=== PATIENT | female | born 1970 | race Caucasian/White ===

== ENCOUNTER → 2016-07-26 | Outpatient (REF) | payer MEDICARE, MEDICAID | LOC: M LAB REF 12:24 | PROVIDERS: ATTEND Physician Assistant | DX: R30.0 Dysuria (principal) ==

== ENCOUNTER → 2016-08-25 | Outpatient (CLI) | payer MEDICARE, MEDICAID ==
--- NOTE | 2016-08-25 15:05 | REPMRS ---
Patient History The patient states she had a clinical breast exam in 08/2016. Family history of endometrial cancer in sister under age 50 and ovarian cancer in sister. Digital Woman Screen Mammo: August 25, 2016 - Exam #: [id number] Bilateral CC and MLO view(s) were taken. Technologist: Maribel Salas, Technologist Prior study comparison: April 17, 2014, right breast digital mammo diagnostic unilateral, performed at [facility]. March 26, 2014, digital woman screen mammo performed at [facility]. FINDINGS: There are scattered fibroglandular densities. There has been no change in the appearance of the mammogram from the prior studies. There is a mild amount of residual fibroglandular tissue which is fairly symmetric. There is no interval development of dominant mass, architectural distortion, or clustered microcalcification suggestive of malignancy. ASSESSMENT: BI-RADS/ACR category 1 mammogram. Negative. Recommendation Routine screening mammogram in 1 year (for women over age 40). This mammogram was interpreted with the aid of an FDA-approved computer-aided dectection system. Electronically Signed By: Beto Nunez MD 08/25/16 [id number]
== END ==
LOC: M WHC 13:51
PROVIDERS: ATTEND Nurse Practitioner Women's Health
DX: Z12.31 Encounter for screening mammogram for malignant neoplasm of breast (principal); Z12.4 Encounter for screening for malignant neoplasm of cervix; Z80.49 Family history of malignant neoplasm of other genital organs; Z80.41 Family history of malignant neoplasm of ovary
CPT/HCPCS: 87624; G0101; G0123; G0202

== ENCOUNTER → 2017-05-05 | Outpatient (REF) | payer MEDICARE, MEDICAID | LOC: M LAB REF 20:06 | PROVIDERS: ATTEND Physician Assistant | DX: N39.0 Urinary tract infection, site not specified (principal) ==

== ENCOUNTER → 2018-01-11 | Outpatient (CLI) | payer MEDICARE, MEDICAID | LOC: M WHC 13:10 | DX: Z12.31 Encounter for screening mammogram for malignant neoplasm of breast (principal); Z12.4 Encounter for screening for malignant neoplasm of cervix; Z80.49 Family history of malignant neoplasm of other genital organs; Z80.41 Family history of malignant neoplasm of ovary | CPT/HCPCS: 77067; G0123 ==

== ENCOUNTER → 2018-01-11 | Outpatient (REF) | payer MEDICARE, MEDICAID ==
[2018-01-16 14:16] LABS: HPV HYBRID CAPTURE II Positive (Negative)
== END ==
LOC: M SFHCWAGY 13:35
DX: Z12.4 Encounter for screening for malignant neoplasm of cervix (principal)
CPT/HCPCS: G0123

== ENCOUNTER → 2018-01-23 | Outpatient (REF) | payer MEDICARE, MEDICAID | LOC: M SFHCWAGY 13:25 | DX: R87.810 Cervical high risk human papillomavirus (HPV) DNA test positive (principal) | CPT/HCPCS: 88304 ==

== ENCOUNTER 2018-07-17 19:34 | Emergency (ER) | payer MEDICARE, MEDICAID ==
[~2018-07-17] VITALS: Ht 165.1 cm; Wt 108.6 kg
[2018-07-17] MEDS ORDERED: ASPI1TAB PO (19:57)
[2018-07-17] MEDS ORDERED: ATOR1TAB19 PO (20:08)
[2018-07-17] MEDS ORDERED: LAMO200T2 PO (20:08)
[2018-07-17] MEDS ORDERED: CLON1TAB8 PO (20:08)
[2018-07-17] MEDS ORDERED: BISO5TAB5 PO (20:08)
[2018-07-17] MEDS ORDERED: GLYB1TAB67 PO (20:08)
[2018-07-17] MEDS ORDERED: TRUL0.5I SC (20:08)
[2018-07-17] MEDS ORDERED: VENL75CA2 PO (20:08)
[2018-07-17] MEDS ORDERED: ZIPR60CA11 PO (20:08)
[2018-07-17] MEDS ORDERED: LISI-542 PO (20:08)
[2018-07-17] MEDS ORDERED: FARX1TAB3 PO (20:08)
[2018-07-17] MEDS ORDERED: LEVE1INJ5 SC (20:08)
[2018-07-17] MEDS ORDERED: VENL150C43 PO (20:08)
[2018-07-17] MEDS ORDERED: MELO15TA28 PO (20:08)
[2018-07-17 20:16] LABS: BASO # 0.1 10^3/uL (0.0-0.2); BASO % 0.8 % (0.0-1.0); EOS # 0.4 10^3/uL (0.0-0.50); EOS % 2.4 % (0.0-3.0); HEMATOCRIT 44.7 % (36.0-47.0); LYMPH # 4.1 10^3/uL (1.5-4.5); LYMPH % 28.5 % (24.0-44.0); MEAN CORPUSCULAR HEMOGLOBIN 26.8 pg (27.0-33.0); MEAN CORPUSCULAR HGB CONC 31.3 g/dl (32.0-36.5); MEAN CORPUSCULAR VOLUME 85.5 fl (80.0-96.0); MONO # 0.8 10^3/uL (0.0-0.8); MONO % 5.8 % (0.0-5.0); NEUTROPHILS # 8.9 10^3/uL (1.8-7.7); NEUTROPHILS % 61.7 % (36.0-66.0); PLATELET COUNT, AUTOMATED 361 10^3/uL (150-450); RED BLOOD COUNT 5.23 10^6/uL (4.00-5.40); WHITE BLOOD COUNT 14.4 10^3/uL (4.0-10.0)
[2018-07-17] MEDS ORDERED: NORCO, ANEXSIA 5/325MG TABLET (HYDROcodone/ACETAMINOPHEN) PO ONE (20:30)
--- NOTE | 2018-07-17 20:40 | REP ---
Clinical: Chest pain and shortness of breath . Comparison: 07/17/2018 of the . Technique: PA and lateral. Findings: The mediastinum and cardiac silhouette are normal. The lung boyd are clear and without acute consolidation, effusion, or pneumothorax. The skeletal structures are intact and normal. Impression: 1. No acute cardiopulmonary process. Electronically Signed by Kwame Arndt MD 07/17/2018 08:32 P
[2018-07-17 20:59] LABS: ALBUMIN 3.5 GM/DL (3.2-5.2); ALT/SGPT 24 U/L (12-78); BILIRUBIN,DIRECT < 0.1 MG/DL (0.0-0.2); BILIRUBIN,TOTAL 0.2 MG/DL (0.2-1.0); BLOOD UREA NITROGEN 6 MG/DL (7-18); CALCIUM LEVEL 8.6 MG/DL (8.5-10.1); CARBON DIOXIDE LEVEL 25 MEQ/L (21-32); CHLORIDE LEVEL 105 MEQ/L (98-107); CPK CREATINE PHOSPHOKINASE 71 U/L (26-192); CREATININE FOR GFR 0.85 MG/DL (0.55-1.30); GLOMERULAR FILTRATION RATE > 60.0 (>58); GLUCOSE, FASTING 170 MG/DL (70-100); LIPASE 170 U/L (73-393); MB/CK RELATIVE INDEX 2.25 (< OR =4); POTASSIUM SERUM 4.3 MEQ/L (3.5-5.1); SODIUM LEVEL 138 MEQ/L (136-145); TOTAL PROTEIN 6.5 GM/DL (6.4-8.2); TROPONIN I < 0.02 NG/ML (< 0.10)
[2018-07-17] MEDS ORDERED: ISOVUE-370 76% 100ML VIAL (Q9967) As Ordered ONE (21:38)
[2018-07-17 22:30] VITALS: BP 170/74
--- NOTE | 2018-07-17 22:52 | REPVR ---
EXAM: CT Abdomen and Pelvis With Contrast EXAM DATE/TIME: 07/17/2018 10:02 PM CLINICAL HISTORY: 47 years old, female; Pain; Abdominal pain; Generalized; Additional info: Ruq abd/flank pain, eval for pyelo TECHNIQUE: Axial computed tomography images of the abdomen and pelvis with intravenous contrast. All CT scans at this facility use at least one of these dose optimization techniques: automated exposure control; mA and/or kV adjustment per patient size (includes targeted exams where dose is matched to clinical indication); or iterative reconstruction. Coronal and sagittal reformatted images were created and reviewed. CONTRAST: 100 ml of ISOVUE 370 administered intravenously. COMPARISON: No relevant prior studies available. FINDINGS: Lower thorax: Clear appearing lung bases. The heart is normal in size. ABDOMEN: Liver: Normal appearing liver. Gallbladder and bile ducts: Post cholecystectomy patient. Normal common bile duct. Pancreas: Normal pancreas. Spleen: Normal spleen. Adrenals: Normal adrenal glands. Kidneys and ureters: Normal kidneys. No evidence of a stone in the right or left ureter. Stomach and bowel: The cecum is in the right pelvis. The appendix appears within the range of normal. Normal-appearing small bowel. PELVIS: Bladder: Unremarkable as visualized. Reproductive: Normal uterus. Follicular cysts in both ovaries. ABDOMEN and PELVIS: Intraperitoneal space: There is no evidence of pneumoperitoneum. There is no evidence of free fluid in the abdomen or the pelvis. Bones/joints: There is no evidence of fracture. The lumbar vertebra appear in alignment. Soft tissues: Small umbilical hernia with protrusion 3 CM mesenteric fat. There is opacification of the aorta. There is opacification of the SMV and the SMA. IMPRESSION: 1. Very small fat containing umbilical hernia. 2. No evidence of bowel obstruction. Electronically signed by: Brandon Bacon On 07/17/2018 22:52:22 PM
[2018-07-17] MEDS ORDERED: CEPHALEXIN 500 MG CAP PO ONE (23:00)
[2018-07-17] MEDS ORDERED: KEFL500C17 PO (23:00)
--- NOTE | 2018-07-18 21:15 | ECGEPIP ---
Stationary ECG Study [facility] - ED Test Date: 2018-07-17 Pat Name: CHARIS DWYER Department: Room: - Gender: F Mat Gauger: [facility] : 1970 Requested By: LUIS LUA Order Number: [id number] Reading MD: Tai Adam Measurements Intervals [place] Rate: 72 P: 54 NM: 191 QRS: 29 QRSD: 88 T: 33 QT: 375 QTc: 413 Interpretive Statements SINUS RHYTHM BASELINE ARTIFACT AFFECTS INTERPRETATION NO PRIORS FOR COMPARISON Electronically Signed On 07-18-2018 21:14:57 EST by Tai Adam
== END 2018-07-17 23:11 | disposition home or self-care (01) ==
LOC: M ED 19:34
DX: N39.0 Urinary tract infection, site not specified (principal); R06.02 Shortness of breath; R10.11 Right upper quadrant pain; E11.9 Type 2 diabetes mellitus without complications; Z72.0 Tobacco use; K42.9 Umbilical hernia without obstruction or gangrene; Z79.82 Long term (current) use of aspirin; Z79.4 Long term (current) use of insulin; Z79.899 Other long term (current) drug therapy; Z88.5 Allergy status to narcotic agent; Z88.8 Allergy status to other drugs, medicaments and biological substances
CPT/HCPCS: 36415; 71046; 74177; 80053; 81001; 82550; 82553; 83690; 84484; 85025; 85379; 87088; 87186; 93005; 93041; 94760; 99285; Q9967

== ENCOUNTER → 2018-07-17 | Outpatient (CLI) | payer MEDICARE, MEDICAID ==
[~2018-07-17] MED LIST: ASPI1TAB PO; ATOR1TAB19 PO; BISO5TAB5 PO; CLON1TAB8 PO; FARX1TAB3 PO; GLYB1TAB67 PO; KEFL500C17 PO; LAMO200T2 PO; LEVE1INJ5 SC; LISI-542 PO; MELO15TA28 PO; TRUL0.5I SC; VENL150C43 PO; VENL75CA2 PO; ZIPR60CA11 PO
--- NOTE | 2018-07-17 17:27 | REP ---
Clinical: Shortness of breath . Comparison: 03/22/2014 . Technique: PA and lateral. Findings: The mediastinum and cardiac silhouette are normal. The lung boyd are clear and without acute consolidation, effusion, or pneumothorax. The skeletal structures are intact and normal. Impression: 1. No acute cardiopulmonary process. Electronically Signed by Kwame Arndt MD 07/17/2018 05:18 P
[2018-07-17 19:31] LABS: HEMATOCRIT 44.7 % (36.0-47.0); HEMOGLOBIN 14.2 g/dl (12.0-15.5); MEAN CORPUSCULAR HEMOGLOBIN 26.7 pg (27.0-33.0); MEAN CORPUSCULAR HGB CONC 31.8 g/dl (32.0-36.5); MEAN CORPUSCULAR VOLUME 84.2 fl (80.0-96.0); PLATELET COUNT, AUTOMATED 388 10^3/uL (150-450); RED BLOOD COUNT 5.31 10^6/uL (4.00-5.40); WHITE BLOOD COUNT 14.3 10^3/uL (4.0-10.0)
[2018-07-17 19:41] LABS: ALBUMIN 3.5 GM/DL (3.2-5.2); ALT/SGPT 23 U/L (12-78); BILIRUBIN,TOTAL < 0.1 MG/DL (0.2-1.0); BLOOD UREA NITROGEN 5 MG/DL (7-18); CALCIUM LEVEL 8.7 MG/DL (8.5-10.1); CARBON DIOXIDE LEVEL 26 MEQ/L (21-32); CHLORIDE LEVEL 106 MEQ/L (98-107); GLOMERULAR FILTRATION RATE > 60.0 (>58); GLUCOSE, FASTING 233 MG/DL (70-100); LIPASE 179 U/L (73-393); POTASSIUM SERUM 4.6 MEQ/L (3.5-5.1); SODIUM LEVEL 140 MEQ/L (136-145); TOTAL PROTEIN 6.5 GM/DL (6.4-8.2)
[2018-07-17 20:23] LABS: BASOPHILS 1 % (0-4); EOSINOPHILS 5 % (0-5); LYMPHOCYTES 35 % (16-52); MONOCYTES 5 % (0-8); NEUTROPHILS 54 % (35-75); PLATELET ESTIMATE NORMAL (NORMAL)
== END ==
LOC: M ADAMS 17:02
PROVIDERS: ATTEND Physician Assistant
DX: R06.02 Shortness of breath (principal); R10.11 Right upper quadrant pain

== ENCOUNTER → 2018-07-22 | Outpatient (CLI) | payer MEDICARE, MEDICAID ==
--- NOTE | 2018-07-22 09:52 | REP ---
Clinical: Thoracic back pain. Technique: AP, lateral, and swimmers views. Findings: Alignment and kyphosis is maintained. Vertebral bodies intact. No acute fracture / compression injury or subluxation. Mild degenerative changes include subtle marginal spurring. Paravertebral soft tissues are normal. Impression: Mild thoracic degenerative change. Electronically Signed by Kwame Arndt MD 07/22/2018 09:44 A
== END ==
LOC: M ADAMS 09:23
PROVIDERS: ATTEND Physician Assistant
DX: M54.6 Pain in thoracic spine (principal); S20.221A Contusion of right back wall of thorax, initial encounter; W18.30XA Fall on same level, unspecified, initial encounter; Y92.009 Unspecified place in unspecified non-institutional (private) residence as the place of occurrence of the external cause

== ENCOUNTER → 2018-10-09 | Outpatient (REF) | payer MEDICARE, MEDICAID ==
[~2018-10-09] MED LIST changes: -ASPI1TAB PO; +ASPI81TA26 PO
== END ==
LOC: M LAB REF 12:59
PROVIDERS: ATTEND Physician Assistant
DX: R30.0 Dysuria (principal)

== ENCOUNTER → 2019-02-08 | Outpatient (CLI) | payer MEDICARE, MEDICAID ==
--- NOTE | 2019-02-09 08:00 | REP ---
BILATERAL SCREENING DIGITAL MAMMOGRAM WITH 3D TOMOSYNTHESIS: There are no palpable abnormalities or other breast complaints. The the patient states she had a clinical breast examination January,. The the patient states she performs self-breast examinations 12 times per year. The Tyrer-Cuzick Score is: 9.6%. The . Comparison is 03/26/2014, 04/17/2014, 08/25/2016. There are scattered areas of fibroglandular density. There are benign calcifications. There is no dominant mass, micro calcific cluster or architectural distortion that would indicate malignancy. There are no additional findings on 3D tomosynthesiss. There is no change from the prior study. Impression: BIRADS/ACR category 2 mammogram. Benign findings. Recommendation: Routine annual screening mammography. This mammogram was interpreted with the aid of a FDA approved computer-aided detection system. A. Negative mammogram reports should not delay biopsy if a dominant or clinically suspicious mass is present. B. Not all breast cancers are identified by mammography or tomosynthesis. C. Adenosis and dense breasts may obscure an underlying neoplasm. Patient letter M1. Electronically Signed by Beto Infante MD 02/09/2019 07:52 A
== END ==
LOC: M WHC 15:32
PROVIDERS: ATTEND Nurse Practitioner Women's Health
DX: Z01.419 Encounter for gynecological examination (general) (routine) without abnormal findings (principal); Z12.31 Encounter for screening mammogram for malignant neoplasm of breast
CPT/HCPCS: 77063; 77067; 87624; G0101; G0123

== ENCOUNTER → 2019-02-08 | Outpatient (REF) | payer MEDICARE, MEDICAID ==
[2019-02-10 16:05] LABS: HPV HYBRID CAPTURE II Negative (Negative)
== END ==
LOC: M SFHCWAGY 16:09
PROVIDERS: ATTEND Nurse Practitioner Women's Health
DX: Z12.4 Encounter for screening for malignant neoplasm of cervix (principal); Z80.41 Family history of malignant neoplasm of ovary; R87.5 Abnormal microbiological findings in specimens from female genital organs
CPT/HCPCS: 87624; G0123